=== PATIENT | male | born 1980 | race Hispanic/Latino ===

== ENCOUNTER 2018-06-12 16:11 | Emergency (ER) | payer OTHER ==
[2018-06-12] MEDS ORDERED: IBUPROFEN 600 MG TABLET ONE (17:18)
[2018-06-12 17:24] LABS: RAPID GROUP A STREP NEGATIVE (NEGATIVE)
== END 2018-06-12 17:59 | disposition home or self-care (01) ==
LOC: EDH 16:11
DX: J20.9 Acute bronchitis, unspecified (principal); B34.9 Viral infection, unspecified; I10 Essential (primary) hypertension; Z90.49 Acquired absence of other specified parts of digestive tract
CPT/HCPCS: 71046; 87804; 87880

== ENCOUNTER 2021-07-10 10:55 | Emergency (ER) | payer OTHER ==
[~2021-07-10] VITALS: Ht 167.6 cm; Wt 88.0 kg
[2021-07-10] MEDS ORDERED: LIDOCAINE HCL 1% 20 ML VIAL INJ SCH (12:00)
[2021-07-10] MEDS ORDERED: IBUPROFEN 600 MG TABLET PO SCH (12:00)
[2021-07-10] MEDS ORDERED: DIPH,PERTUSS(ACELL),TET VAC/PF 0.5 ML VIAL IM SCH (12:00)
[2021-07-10] MEDS ORDERED: TETANUS/DIPHTHERIA TOXOID [ADULT] 0.5 ML VIAL IM ONE (12:13)
[2021-07-10] MEDS ORDERED: LIDOCAINE HCL 400MG/20ML VIAL ONE (12:14)
[2021-07-10] MEDS ORDERED: TETANUS/DIPHTHERIA TOXOID [ADULT] 0.5 ML VIAL IM SCH (12:30)
[2021-07-10] MEDS ORDERED: OCTYL 2-CYANOACRYLATE 1 EACH TP ONE (12:41)
[2021-07-10] MEDS ORDERED: AMOX1TAB16 PO (12:53)
[2021-07-10] MEDS ORDERED: ACET-2079 PO (12:53)
[2021-07-10] MEDS ORDERED: BACITRACIN 3.5 GM TUBE OU SCH (13:00)
[2021-07-10] MEDS ORDERED: OCTYL 2-CYANOACRYLATE 1 EACH TP SCH (13:00)
[2021-07-10 13:07] VITALS: BP 134/78
== END 2021-07-10 13:14 | disposition home or self-care (01) ==
LOC: EDH 10:55
DX: S61.213A Laceration without foreign body of left middle finger without damage to nail, initial encounter (principal); I10 Essential (primary) hypertension; Z79.1 Long term (current) use of non-steroidal anti-inflammatories (NSAID); X58.XXXA Exposure to other specified factors, initial encounter; Y93.89 Activity, other specified; Y92.89 Other specified places as the place of occurrence of the external cause; Y99.8 Other external cause status
CPT/HCPCS: 12001; 90471; 90714; 99283; J3490; 90715